=== PATIENT | male | born 1985 | race African-American/Black ===

== ENCOUNTER 2016-02-26 09:50 | Emergency (ER) | payer OTHER ==
[2016-02-26 09:58] VITALS: BP 128/78; PULSE 72; TEMP 98.7; BMI 26.6
[2016-02-26] MEDS ORDERED: CYCLOBENZAPRINE HCL 10 MG TABLET (FP) PO ONE (10:16)
[2016-02-26] MEDS ORDERED: KETOROLAC TROMETHAMINE 30 MG/1 ML VIAL IVPUSH ONE (10:16)
--- NOTE | 2016-02-26 10:27 | PDOC ---
History of Present Illness - General History Source: Patient - History of Present Illness Timing/Duration: reports: constant <Maricel Acuna - Last Filed: 02/26/16 12:43> <Nava Dean - Last Filed: 02/26/16 18:17> - General Chief Complaint: Pain, Acute Stated Complaint: LOWER BACK PAIN, ABD CRAMPS, CONSTIPATION Time Seen by Provider: 02/26/16 10:05 Past History - Past Medical History Anemia: No Asthma: Yes Cancer: No Cardiac Disorders: No CVA: No COPD: No CHF: No Dementia: No Diabetes: No GI Disorders: Yes (ABD. PAIN) Disorders: Yes ("weak bladder") HTN: Yes Hypercholesterolemia: No Liver Disease: No Psychiatric Problems: Yes (anxeity,depression) Seizures: No Thyroid Disease: No Other medical history: kidney problems - Surgical History Abdominal Surgery: No Appendectomy: No Cardiac Surgery: No Cholecystectomy: No Lung Surgery: No Neurologic Surgery: No Orthopedic Surgery: Yes (r shoulder rotator cuff surgery) - Immunization History Immunization Up to Date: Yes - Psycho/Social/Smoking Cessation Hx Anxiety: No Suicidal Ideation: No Smoking Status: No Smoking History: Never smoked Have you smoked in the past 12 months: No Number of Cigarettes Smoked Daily: 5 If you are a former smoker, when did you quit?: Several years ago. Cigars Per Day: 0 Information on smoking cessation initiated: No Hx Alcohol Use: No Drug/Substance Use Hx: No Substance Use Type: None Hx Substance Use Treatment: No <Maricel Acuna - Last Filed: 02/26/16 12:43> <Nava Dean - Last Filed: 02/26/16 18:17> - Past Medical History Allergies/Adverse Reactions: Allergies Allergy/AdvReac Type Severity Reaction Status Date / Time Shellfish Allergy Severe Itching, Verified 02/26/16 09:53 diarrhea, abdominal discomfort, rash Home Medications: Ambulatory Orders Tamsulosin HCl 1 tab PO DAILY 12/24/14 Valacyclovir HCl [Valtrex -] 1,000 mg PO BID #4 tablet 09/15/15 Docusate Sodium [Dulcolax Stool Softener] 100 mg PO DAILY #30 capsule 11/05/15 Omeprazole 20 mg PO DAILY #3 capsule. 11/05/15 Aripiprazole [Abilify] 5 mg PO AM #30 tablet 11/25/15 Azithromycin [Zithromax Tri-Les (3 DAYS) -] 500 mg PO DAILY #3 tablet 12/17/15 Cetirizine HCl [Zyrtec -] 10 mg PO DAILY #30 tablet MDD 1 12/17/15 Cyanocobalamin [Vitamin B12 -] 1 tab PO DAILY #30 tablet 12/17/15 Emtricitab/Rilpivirine/Tenofov [Complera Tablet -] 1 tab PO DAILY #30 tablet 11/21 Montelukast Na [Singulair -] 10 mg PO HS #30 tablet 12/17/15 Venlafaxine HCl ER [Effexor Xr -] 75 mg PO DAILY #30 cap.er.24h 12/17/15 Albuterol 0.083% Nebulizer Imelda [Ventolin 0.083% Nebulizer Soln -] 1 amp NEB PRN #30 amp 01/05/16 Amlodipine Besylate [Norvasc -] 10 mg PO DAILY #30 tablet 01/05/16 Acyclovir [Zovirax -] 400 mg PO DAILY #10 tablet 02/11/16 Hydrocortisone 0.5% Cream [Hytone 0.5% Cream -] 1 applic TP DAILY #1 tube Linaclotide [Linzess] 145 mcg PO DAILY #30 cap 02/11/16 Polyethylene Glycol 3350 [Miralax (For Daily Use) -] 17 gm PO DAILY #1 bottle Review of Systems - Review of Systems Constitutional: No: Chills, Fever Respiratory: No: Cough, Shortness of Breath Cardiac (ROS): No: Chest Pain ABD/GI: Yes: Constipated. No: Diarrhea, Nausea, Rectal Bleeding, Vomiting, Tarry Stools : No: Dysuria, Hematuria Musculoskeletal: Yes: Back Pain <Maricel Acuna - Last Filed: 02/26/16 12:43> *Physical Exam - Vital Signs Last Vital Signs Temp Pulse Resp BP Pulse Ox 98.7 F 72 18 128/78 100 02/26/16 09:53 02/26/16 09:53 02/26/16 09:53 02/26/16 09:53 02/26/16 09:53 - Physical Exam General Appearance: Yes: Appropriately Dressed. No: Apparent Distress HEENT: positive: Normal Voice Neck: positive: Supple Respiratory/Chest: negative: Respiratory Distress Gastrointestinal/Abdominal: positive: Soft. negative: Tender, Distended Musculoskeletal: positive: Vertebral Tenderness (to L mid back). negative: CVA Tenderness Integumentary: positive: Dry, Warm Neurologic: positive: Fully Oriented, Alert, Normal Mood/Affect <RichfieldYesseniaYo - Last Filed: 02/26/16 12:43> - Vital Signs Last Vital Signs Temp Pulse Resp BP Pulse Ox 98.7 F 72 18 128/78 100 02/26/16 09:53 02/26/16 09:53 02/26/16 09:53 02/26/16 09:53 02/26/16 09:53 <Nava Dean - Last Filed: 02/26/16 18:17> ED Treatment Course - LABORATORY CBC & Chemistry Diagram: 02/26/16 11:21 02/26/16 11:21 - RADIOLOGY Radiology Studies Ordered: Category Date Time Status ABDOMEN-KUB FLAT PLATE [RAD] Stat Radiology 02/26/16 10:15 Ordered <ArmandYesseniaYo - Last Filed: 02/26/16 12:43> - LABORATORY CBC & Chemistry Diagram: 02/26/16 11:21 02/26/16 11:21 - ADDITIONAL ORDERS Additional order review: Laboratory Results 02/26/16 02/26/16 11:48 11:21 Sodium 142 Potassium 3.9 Chloride 108 H Carbon Dioxide 26 Anion Gap 8 BUN 16 D Creatinine 1.2 Creat Clearance w eGFR > 60 Random Glucose 99 D Calcium 8.2 L Total Bilirubin 0.4 AST 21 ALT 36 Alkaline Phosphatase 89 Total Protein 6.8 Albumin 3.8 Urine Color Ltyellow Urine Appearance Clear Urine pH 6.0 Ur Specific [place] 1.018 Urine Protein Negative Urine Glucose (UA) Negative Urine Ketones Negative Urine Blood Negative Urine Nitrite Negative Urine Bilirubin Negative Urine Urobilinogen Negative Ur Leukocyte Esterase Negative 02/26/16 11:21 RBC 5.00 MCV 88.0 MCHC 34.1 RDW 13.1 MPV 8.2 Neutrophils % 55.4 Lymphocytes % 32.6 D Monocytes % 9.3 Eosinophils % 1.8 D Basophils % 0.9 - Medications Given in the ED: ED Medications Discontinued Medications Generic Name Dose Route Start Last Admin Trade Name Freq PRN Reason Stop Dose Admin Cyclobenzaprine HCl 5 mg 02/26/16 10:16 02/26/16 11:48 Flexeril - PO 02/26/16 10:17 5 mg ONCE ONE Administration Ketorolac Tromethamine 30 mg 02/26/16 10:16 02/26/16 11:48 Toradol Injection - IVPUSH 02/26/16 10:17 30 mg ONCE ONE Administration <Nava Dean - Last Filed: 02/26/16 18:17> Medical Decision Making - Medical Decision Making 02/26/16 10:41 30-year-old male, history of HIV, on medication, CD4 in the 500s, viral <20, hypertension, GERD, polysubstance abuse, depression, presenting with multiple complaints today. Patient complaining of constipation "for a while now". States last bowel movement was a few days ago and has since had to strain to move his bowels. Now having some abdominal bloating and discomfort. No bright red blood per rectum. States he took an enema at home with no improvement. Patient also complaining of left mid back pain 1 week. Describes as sharp and worse with certain movements. No dysuria, hematuria, nausea, vomiting, fever or chills. See exam Constipation No RFs for SBO -KUB -bowel regimen>reassess Back pain M/l MSK No red flags at this time -labs/ua given HIV status -pain control 02/26/16 12:36 Labs wnl. XR w/ fecal debris, no s/o obstruction. Back pain improved w/ meds. Pt stable throughout ED visit. Will discharge w/ bowel regimen at this time <Maricel Acuna - Last Filed: 02/26/16 12:43> *DC/Admit/Observation/Transfer <Maricel Acuna - Last Filed: 02/26/16 12:43> - Attestations Physician Attestion: I reviewed the case with the mid-level practitioner and agree with the mid- level practitioner's assessment, diagnosis and disposition. <Nava Dean - Last Filed: 02/26/16 18:17> Diagnosis at time of Disposition: Constipation Qualifiers: Constipation type: unspecified constipation type Qualified Code(s): K59.00 - Constipation, unspecified - Discharge Dispostion Disposition: HOME Condition at time of disposition: Stable - Prescriptions Prescriptions: Polyethylene Glycol 3350 [Miralax (For Daily Use) -] 17 gm PO DAILY #1 bottle - Referrals Referrals: Khoa Pandya NP [Primary Care Provider] - - Patient Instructions Printed Discharge Instructions: Constipation Additional Instructions: Please follow up with your PMD
[2016-02-26] MEDS ORDERED: CYCLOBENZAPRINE HCL 10 MG TABLET (FP) ONE (11:40)
[2016-02-26] MEDS ORDERED: KETOROLAC TROMETHAMINE 30 MG/1 ML VIAL ONE (11:40)
[2016-02-26 11:42] LABS: BASOPHIL 0.9 % (0-2.0); EOSINOPHIL 1.8 % (0-4.5); MCHC 34.1 g/dl (32.0-35.9); MEAN PLT VOLUME 8.2 fl (7.5-11.1); NEUTROPHILS 55.4 % (42.8-82.8); PLATELET COUNT 203 K/MM3 (134-434); RDW 13.1 % (11.9-15.9); WHITE BLOOD COUNT 4.2 K/mm3 (4.0-10.0)
[2016-02-26 11:55] LABS: ALBUMIN 3.8 g/dl (3.4-5.0); ANION GAP 8 (8-16); BILIRUBIN,TOTAL 0.4 mg/dL (0.2-1.0); CALCIUM 8.2 mg/dL (8.5-10.1); CO2 26 mmol/L (21-32); CREATININE 1.2 mg/dL (0.7-1.3); GLUCOSE,RANDOM 99 mg/dL (74-106); SGOT/AST 21 U/L (15-37); SGPT/ALT 36 U/L (12-78); TOT PROT 6.8 g/dl (6.4-8.2)
[2016-02-26 11:56] LABS: ALK PHOS 89 U/L (45-117)
[2016-02-26 12:05] LABS: URINE APPEARANCE CLEAR; URINE BILIRUBIN NEGATIVE (NEGATIVE); URINE BLOOD NEGATIVE (NEGATIVE); URINE COLOR LTYELLOW; URINE GLUCOSE (UA) NEGATIVE (NEGATIVE); URINE KETONE NEGATIVE (NEGATIVE); URINE LEUK ESTERASE NEGATIVE (NEGATIVE); URINE NITRITE NEGATIVE (NEGATIVE); URINE PROTEIN NEGATIVE (NEGATIVE); URINE UROBILINOGEN NEGATIVE E.U./dl (0.2-1.0)
== END 2016-02-26 13:22 | disposition home or self-care (01) ==
LOC: JER 09:50
PROC: 3E0333Z Introduction of Anti-inflammatory into Peripheral Vein, Percutaneous Approach (ICD-10-PCS; principal; 2016-02-26)
DX: K59.00 Constipation, unspecified (principal); J45.909 Unspecified asthma, uncomplicated; I10 Essential (primary) hypertension; F41.8 Other specified anxiety disorders; Z72.0 Tobacco use
CPT/HCPCS: 36415; 74000-TC; 80053; 81003; 85025; 96374; 99283-25

== ENCOUNTER 2016-12-20 00:02 | Emergency (ER) | payer OTHER ==
[2016-12-20 00:59] VITALS: BP 153/67; PULSE 84; TEMP 98.7; BMI 26.6
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
== END 2016-12-20 02:33 | disposition home or self-care (01) ==
LOC: JER 00:02
DX: B34.9 Viral infection, unspecified (principal); I10 Essential (primary) hypertension; F41.8 Other specified anxiety disorders
CPT/HCPCS: 87804; 99282-25

== ENCOUNTER 2017-03-18 15:21 | Emergency (ER) | payer SELFPAY ==
[2017-03-18 15:27] VITALS: BP 154/79; PULSE 74; TEMP 98; BMI 25.5
--- NOTE | 2017-03-18 15:31 | PDOC ---
History of Present Illness - General History Source: Patient Exam Limitations: No Limitations - History of Present Illness Initial Comments: 03/18/17 16:01 The patient is a 31 year old male with a significant past medical history of HIV , HTN, asthma and depression who presents to the ED with complaints of generalized malaise for a month. The patient reports one month of shortness of breath, sore throat and a cough productive of white phlegm. He also reports feeling warm but never recorded his temperature. He reports chest tightness that started this morning. Patient states his present symptoms are not similar to his history of asthma. Denies recent sick contacts. Denies nausea, vomiting, or diarrhea. Deneis rhinorrhea. Denies dysuria or change in urinary output. Denies any other symptoms. <Jaquelin Dunbar - Last Filed: 03/18/17 16:01> <Ev Kinney - Last Filed: 03/19/17 00:46> - General Chief Complaint: Foreign Body (FB) Stated Complaint: SOB Time Seen by Provider: 03/18/17 15:31 Past History <Jaquelin Dunbar - Last Filed: 03/18/17 16:01> - Past Medical History Anemia: No Asthma: Yes Cancer: No Cardiac Disorders: No CVA: No COPD: No CHF: No Dementia: No Diabetes: No GI Disorders: Yes (ABD. PAIN) Disorders: Yes ("weak bladder") HTN: Yes Hypercholesterolemia: No Liver Disease: No Psychiatric Problems: Yes (anxeity,depression) Seizures: No Thyroid Disease: No - Surgical History Abdominal Surgery: No Appendectomy: No Cardiac Surgery: No Cholecystectomy: No Lung Surgery: No Neurologic Surgery: No Orthopedic Surgery: Yes (r shoulder rotator cuff surgery) - Immunization History Immunization Up to Date: Yes - Suicide/Smoking/Psychosocial Hx Smoking Status: No Smoking History: Never smoked Have you smoked in the past 12 months: No Number of Cigarettes Smoked Daily: 5 If you are a former smoker, when did you quit?: Several years ago. Cigars Per Day: 0 Hx Alcohol Use: No Drug/Substance Use Hx: No Substance Use Type: None Hx Substance Use Treatment: No <Ev Kinney - Last Filed: 03/19/17 00:46> - Past Medical History Allergies/Adverse Reactions: Allergies Allergy/AdvReac Type Severity Reaction Status Date / Time Shellfish Allergy Severe Itching, Verified 03/18/17 15:27 diarrhea, abdominal discomfort, rash Home Medications: Ambulatory Orders Amlodipine Besylate [Norvasc -] 10 mg PO DAILY #30 tablet 12/02/16 Multivitamin with Minerals [Icaps Plus] 1 each PO DAILY #30 tablet 12/02/16 Chlorhexidine Gluconate [Peridex -] 15 ml MM BID #1 btl 01/26/17 Albuterol 0.083% Nebulizer Imelda [Ventolin 0.083% Nebulizer Soln -] 1 amp NEB QID PRN #1 box MDD 4 01/27/17 Docusate Sodium [Colace] 100 mg PO DAILY PRN #30 capsule MDD 1 01/27/17 Aripiprazole [Abilify -] 5 mg PO DAILY #30 tablet 02/16/17 Trazodone HCl 100 mg PO HS #30 tablet 02/16/17 Venlafaxine HCl ER [Effexor Xr -] 100 mg PO DAILY #30 cap.er.24h 02/16/17 Cetirizine HCl [Zyrtec -] 10 mg PO DAILY #30 tablet 03/02/17 Cyanocobalamin [Vitamin B12 -] 1 tab PO DAILY #30 tablet 03/02/17 Emtricitab/Rilpivirine/Tenofov [Complera -] 1 each PO DAILY #30 tablet 03/02/17 Fluticasone Prop 0.05% Nasal [Flonase -] 1 - 2 spray NS DAILY #1 spray.pump Guaifenesin [Mucinex -] 600 mg PO DAILY #20 tablet.er 03/02/17 Montelukast Na [Singulair -] 10 mg PO HS #30 tablet 03/02/17 Omeprazole 20 mg PO DAILY #30 capsule. 03/02/17 Ranitidine HCl [Zantac] 150 mg PO BID PRN 7 Days #14 tablet 03/18/17 Review of Systems - Review of Systems Able to Perform ROS?: Yes Comments:: 03/18/17 16:01 Constitutional -+ malaise. Pt denies Fever, Chills, weakness, HEENT: + sore throat denies vision changes Respiratory: + shortness of breath, cough Denies hemoptysis Cardiac: + chest tightness denies palpitations, light headedness, leg swelling Abd/GI: denies abd pain, nausea, vomiting, blood per rectum, melena, diarrhea : denies dysuria, frequency, discharge Musculskelatal - denies back pain, joint swelling skin - denies bruising, erythema, rash neurological: denies headache, numbness, focal weakness, tingling, ataxia, weakness hematologic: denies anemia, easy bruising, easy bleeding All Other Systems: Reviewed and Negative <Jaquelin Dunbar - Last Filed: 03/18/17 16:01> *Physical Exam - Vital Signs Last Vital Signs Temp Pulse Resp BP Pulse Ox 98 F 74 18 154/79 98 03/18/17 15:25 03/18/17 15:25 03/18/17 15:25 03/18/17 15:25 03/18/17 15:25 - Physical Exam Comments: 03/18/17 16:01 GENERAL: The patient is awake, alert, and fully oriented, Nontoxic - in no acute distress. HEAD: Normocephalic, atraumatic. EYES: extraocular movements intact, sclera anicteric, conjunctiva clear. ENT: Normal voice, moist mucous membranes. NECK: Normal range of motion, supple without lymphadenopathy, JVD, or masses. LUNGS: Breath sounds equal, clear to auscultation bilaterally. No wheezes, no crackles, no rales. HEART: Regular rate and rhythm, normal S1 and S2 without murmur, rub or gallop. ABDOMEN: Soft, nontender, normoactive bowel sounds. No guarding, no rebound. No masses. EXTREMITIES: Normal range of motion, no edema. No clubbing or cyanosis. No cords , erythema, or tenderness. NEUROLOGICAL: Fully Oriented, Alert, Normal Mood/Affect, Motor Strength 5/5. No facial assymetry, Normal speech SKIN: Warm, Dry, normal turgor, no rashes or lesions noted. <Jaquelin Dunbar - Last Filed: 03/18/17 16:01> - Vital Signs Last Vital Signs Temp Pulse Resp BP Pulse Ox 98 F 74 18 154/79 98 03/18/17 15:25 03/18/17 15:25 03/18/17 15:25 03/18/17 15:25 03/18/17 15:25 <Ev Kinney - Last Filed: 03/19/17 00:46> ED Treatment Course - LABORATORY CBC & Chemistry Diagram: 03/18/17 16:06 03/18/17 16:06 <Ev Kinney - Last Filed: 03/19/17 00:46> Medical Decision Making - Medical Decision Making 03/18/17 19:30 I, Dr. ev Kinney, attest that the scribes documentation that appears above has been prepared under my direction and personally reviewed by me. I confirmed that the note above accurately reflects all work, treatment, procedures, and medical decision-making performed by me. 03/18/17 19:31 Pt presents to ED c/o feeling like something is his throat or stuck in his chest. Pt says something has been stuck in his chest for one month. Pt behavior is odd screaming inapproriately at times then very calm at times.Pt was just at [facility] today with the same complaint. Pt says he cannot eat and has not eaten in a month due to the symptoms. Cbc,cmp and cxr ordered to evaluate pt's complaints. While eaiting on labs pt ate lunch in ED and was sleeping comfortably. Pt's labs noted and reviewed and cxr while not officially read appears nl no acute infiltrate.Pt is HIV positive but says he is compliant with his meds and his CD4 count was normal in December 2016 when medical record reviewed. Pt labs and xray results were reviewed with him and he was told he was being discharged and initially said ok then 5 minutes later said he could not go because he could not breath. Pt was reexamined and was noted to have a room air saturation of 98-100% in no distress with clear bs, nl uvula , no thrush noted on oral exam.Pt explained he would be given out pt f/u for his complaints. He insisted above complaints present for months and he needed additional testing.Pt was give pepcid and discharged on zantac prn in case of reflux , and pt given out pt referral with with gi, ent, and told to f/u with pcp in next 48-72 hrs. Pt still did not want to leave and hospital secutity were called and pt eventually left ED in stable condition. 03/19/17 00:41 <Ev Kinney - Last Filed: 03/19/17 00:46> *DC/Admit/Observation/Transfer - Attestations Scribe Attestion: 03/18/17 16:02 Documentation prepared by Jaquelin Dunbar, acting as medical services assistant for Ev Kinney MD <Jaquelin Dunbar - Last Filed: 03/18/17 16:01> - Discharge Dispostion Admit: No <Ev Kinney - Last Filed: 03/19/17 00:46> Diagnosis at time of Disposition: Laryngitis - Discharge Dispostion Disposition: HOME Condition at time of disposition: Stable - Prescriptions Prescriptions: Ranitidine HCl [Zantac] 150 mg PO BID PRN 7 Days #14 tablet PRN Reason: Dyspepsia - Referrals Referrals: Khoa Pandya NP [Primary Care Provider] - Ferdinand Khan MD [Staff Physician] - Chris Coleman MD [Staff Physician] - - Patient Instructions Additional Instructions: return to ED for trouble breathing, sob, fever or as needed. Take all meds as prescribed f/u with ent, gi and pcp in next 48-72 hrs for reevaluation
[2017-03-18 16:13] LABS: BASO % 0.6 % (0-2.0); EOS % 1.3 % (0-4.5); HEMATOCRIT 45.4 % (35.4-49); HEMOGLOBIN 15.6 GM/dL (11.7-16.9); LYMPH % 28.9 % (8-40); MCH 30.1 pg (25.7-33.7); MCHC 34.4 g/dl (32.0-35.9); MEAN CELL VOLUME 87.5 fl (80-96); MEAN PLT VOLUME 8.2 fl (7.5-11.1); NEUT % 60.2 % (42.8-82.8); PLATELET COUNT 231 K/MM3 (134-434); RBC 5.18 M/mm3 (4.00-5.60); WHITE BLOOD COUNT 4.9 K/mm3 (4.0-10.0)
[2017-03-18 16:42] LABS: ALBUMIN 4.2 g/dl (3.4-5.0); ANION GAP 5 (8-16); BILIRUBIN,TOTAL 0.8 mg/dL (0.2-1.0); BLOOD UREA NITROGEN 11 mg/dL (7-18); CALCIUM 8.1 mg/dL (8.5-10.1); CHLORIDE 109 mmol/L (98-107); CO2 28 mmol/L (21-32); CREATININE 1.2 mg/dL (0.7-1.3); GLUCOSE,RANDOM 81 mg/dL (74-106); SGOT/AST 23 U/L (15-37); SGPT/ALT 32 U/L (12-78); SODIUM 142 mmol/L (136-145)
[2017-03-18 16:43] LABS: ALK PHOS 69 U/L (45-117)
[2017-03-18] MEDS ORDERED: ACETAMINOPHEN 500 MG TABLET (FP) PO ONE (17:46)
[2017-03-18] MEDS ORDERED: FAMOTIDINE IV 20 MG/12 ML VIAL IVPUSH ONE (17:48)
[2017-03-18] MEDS ORDERED: FAMOTIDINE 20 MG/50 ML IVPB 20 MG/50 ML MG IVPB ONE (17:52)
[2017-03-18] MEDS ORDERED: ACETAMINOPHEN 325 MG TABLET (FP) ONE (17:52)
== END 2017-03-18 18:08 | disposition home or self-care (01) ==
LOC: JER 15:21
PROC: 3E033GC Introduction of Other Therapeutic Substance into Peripheral Vein, Percutaneous Approach (ICD-10-PCS; principal; 2017-03-18)
DX: J04.0 Acute laryngitis (principal); I10 Essential (primary) hypertension; J45.909 Unspecified asthma, uncomplicated; F32.9 Major depressive disorder, single episode, unspecified; Z21 Asymptomatic human immunodeficiency virus [HIV] infection status
CPT/HCPCS: 36415; 71046-TC-FY; 80053; 85025; 99283-25

== ENCOUNTER → 2018-10-03 | Outpatient (CLI) | payer OTHER | LOC: YHH 10:32 ==

== ENCOUNTER 2019-01-15 02:26 | Emergency (ER) | payer OTHER ==
[2019-01-15 02:31] VITALS: BP 140/86; PULSE 60; TEMP 98; BMI 26.6
--- NOTE | 2019-01-15 02:42 | PDOC ---
History of Present Illness - General Chief Complaint: Shortness of Breath Stated Complaint: DIFFICULTY BREATHING Time Seen by Provider: 01/15/19 02:42 History Source: Patient Exam Limitations: No Limitations - History of Present Illness Initial Comments: 01/15/19 03:51 33yM w PMHx HIV, HTN, asthma, depression, frequent ED visitor presenting w cough and chest pain. Been having white phlegm cough, rocco anterior chest pain, nasal congestion, headaches, chills, umbilical discomfort for the last 3 years. Vomited twice today. Denies alcohol/smoking/illicit drugs. Went to [facility] today for symptoms, left d/t dissatisfaction w care. Reports recently found to have house filled with mold. Wants to be admitted for pulmonary function test per Dr Rodrigez. Compliant w meds, last absolute CD4 >500 on 11/02/18. Denies fever, urinary/bowel mvmt changes. Past History - Past Medical History Allergies/Adverse Reactions: Allergies Allergy/AdvReac Type Severity Reaction Status Date / Time Shellfish Allergy Severe Itching, Verified 01/15/19 02:29 diarrhea, abdominal discomfort, rash Home Medications: Ambulatory Orders Elviteg/Cob/Emtri/Tenof Alafen [Genvoya Tablet] 1 tab PO DAILY #30 tablet Omeprazole 20 mg PO DAILY #30 capsule. 02/14/18 Valacyclovir HCl [Valtrex -] 2 tab PO BID #4 tablet 02/14/18 Multivitamin,Ther and Minerals [Vitamin and Minerals] 1 each PO DAILY #30 tablet 12/05/18 Albuterol 0.083% Nebulizer Imelda [Ventolin 0.083% Nebulizer Soln -] 1 amp NEB QID PRN #1 box MDD 4 01/10/19 Amlodipine Besylate [Norvasc -] 10 mg PO DAILY #30 tablet 01/10/19 Elviteg/Cob/Emtri/Tenof Alafen [Genvoya (Non-Formulary)] 1 each PO DAILY #30 tablet 01/10/19 Fluticasone Prop 0.05% Nasal [Flonase -] 1 - 2 spray NS DAILY #1 spray.pump 06/24 Perphenazine [Trilafon -] 4 mg PO HS #30 tablet 01/10/19 Venlafaxine HCl ER [Effexor Xr -] 150 mg PO DAILY #30 cap.er.24h 01/10/19 traZODone HCL [Trazodone HCl] 100 mg PO HS #30 tablet 01/10/19 Anemia: No Asthma: Yes Cancer: No Cardiac Disorders: No CVA: No COPD: No CHF: No Dementia: No Diabetes: No GI Disorders: Yes Disorders: Yes ("weak bladder") HTN: Yes Hypercholesterolemia: Yes Liver Disease: No Psychiatric Problems: Yes (anxeity,depression) Seizures: No Thyroid Disease: No - Surgical History Abdominal Surgery: No Appendectomy: No Cardiac Surgery: No Cholecystectomy: No Lung Surgery: No Neurologic Surgery: No Orthopedic Surgery: Yes (r shoulder rotator cuff surgery) - Immunization History Immunization Up to Date: Yes - Psycho Social/Smoking Cessation Hx Smoking Status: No Smoking History: Never smoked Have you smoked in the past 12 months: No Number of Cigarettes Smoked Daily: 5 If you are a former smoker, when did you quit?: Several years ago. Cigars Per Day: 0 Hx Alcohol Use: Yes Drug/Substance Use Hx: Yes (pcp) Substance Use Type: Marijuana Hx Substance Use Treatment: No Review of Systems - Review of Systems Constitutional: Yes: Chills. No: Fever HEENTM: No: Recent change in vision, Throat Pain Respiratory: Yes: Cough. No: Shortness of Breath, Wheezing Cardiac (ROS): Yes: Chest Pain. No: Palpitations, Syncope ABD/GI: Yes: Nausea, Vomiting. No: Abdominal Distended, Constipated, Diarrhea : No: Burning, Dysuria Musculoskeletal: No: Back Pain, Joint Pain Integumentary: No: Bruising, Dryness, Erythema Neurological: Yes: Headache. No: Seizure, Tingling Psychiatric: No: Anxiety, Stressors Endocrine: No: Excessive Sweating, Intolerance to Cold, Intolerance to Heat Hematologic/Lymphatic: No: Anemia, Blood Clots *Physical Exam - Vital Signs Last Vital Signs Temp Pulse Resp BP Pulse Ox 98.0 F 60 18 140/86 98 01/15/19 02:29 01/15/19 02:29 01/15/19 02:29 01/15/19 02:29 01/15/19 02:29 - Physical Exam General Appearance: Yes: Nourished, Appropriately Dressed. No: Apparent Distress HEENT: positive: EOMI, ADOLFO, Normal Voice, Hearing Grossly Normal. negative: Scleral Icterus (R), Scleral Icterus (L), Nasal Congestion Respiratory/Chest: positive: Chest Tender (rocco anterior chest), Lungs Clear, Normal Breath Sounds. negative: Respiratory Distress, Crackles, Rales, Rhonchi , Stridor, Wheezing Cardiovascular: positive: Regular Rhythm, Regular Rate, S1, S2. negative: Edema , Murmur Gastrointestinal/Abdominal: positive: Normal Bowel Sounds, Flat, Soft. negative : Tender, Organomegaly, Protuberent, Distended, Guarding, Rebound, Tenderness, Hernia, Mass Musculoskeletal: negative: CVA Tenderness (R), CVA Tenderness (L) Extremity: positive: Normal Capillary Refill Integumentary: positive: Normal Color. 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 negative: Numbness, Sensory Deficit, Confused, Disoriented ED Treatment Course - LABORATORY CBC & Chemistry Diagram: 01/15/19 04:00 01/15/19 04:00 Medical Decision Making - Medical Decision Making 01/15/19 03:57 CBC CMP trop EKG shows sinus bradycardia, HR 54, QTc 386, ST elevations V2-3 unchanged from previous EKG toradol CBC, CMP normal, trop neg, Cr 1.5 (elevated last 6mo) --- 33yM w PMHx HIV, HTN, asthma, depression, frequent ED visitor presenting w 3yr chronic cough, chest pain, nasal congestion d/t URI. Low concern for ACS (NSR EKG, neg trop) vs PE ([facility]C out). Given PO fluids, tylenol and toradol for pain. Told pt he will not be admitted for PFT since it is not urgent. DC home w PCP/ pulm f/u Discharge - Discharge Information Problems reviewed: Yes Clinical Impression/Diagnosis: Viral URI with cough Condition: Good Disposition: HOME - Admission No - Follow up/Referral - Patient Discharge Instructions Additional Instructions: You were seen for cough and chest pain. Your labs and imaging did not show anything concerning. You were given pain medication and fluids. Follow up with your primary care doctor and lung doctor regarding your symptoms. Come back to the ED if you cannot breathing, unable to keep fluids down, or pass out. - Post Discharge Activity
--- NOTE | 2019-01-15 02:51 | PDOC ---
Attending Attestation - Resident Resident Name: Jose Downey - ED Attending Attestation I have performed the following: I have examined & evaluated the patient, The case was reviewed & discussed with the resident, I agree w/resident's findings & plan - HPI HPI: 01/15/19 04:48 agree with resident hpi - Physicial Exam PE: 01/15/19 04:48 agree with resident exam - Medical Decision Making 01/15/19 04:33-year-old male, HIV positive by history compliant with medications complaining of 2 years of shortness of breath now with reproducible chest pain EKG shows an early repolarization pattern, similar to previous Chest x-ray shows no acute pulmonary disease Patient given NSAIDs, 500 cc of normal saline given as well due to mild elevation of creatinine which is also chronic Plan for discharge home with primary care follow-up
[2019-01-15] MEDS ORDERED: ACETAMINOPHEN 500 MG TABLET (FP) PO ONE (03:34)
[2019-01-15] MEDS ORDERED: KETOROLAC TROMETHAMINE 30 MG/1 ML VIAL IM ONE (04:07)
[2019-01-15] MEDS ORDERED: KETOROLAC TROMETHAMINE 30 MG/1 ML VIAL ONE (04:24)
[2019-01-15 04:29] LABS: EOS % 2.3 % (0-4.5); HEMATOCRIT 45.4 % (35.4-49); HEMOGLOBIN 15.2 GM/dL (11.7-16.9); LYMPH % 37.6 % (8-40); MCH 29.3 pg (25.7-33.7); MCHC 33.5 g/dl (32.0-35.9); MEAN CELL VOLUME 87.5 fl (80-96); MEAN PLT VOLUME 8.7 fl (7.5-11.1); MONO % 7.8 % (3.8-10.2); NEUT % 51.3 % (42.8-82.8); PLATELET COUNT 247 K/MM3 (134-434); RBC 5.19 M/mm3 (4.00-5.60); RDW 13.3 % (11.9-15.9)
[2019-01-15 04:46] LABS: ALBUMIN 4.2 g/dl (3.4-5.0); BILIRUBIN,TOTAL 0.6 mg/dL (0.2-1); BLOOD UREA NITROGEN 14.1 mg/dL (7-18); CALCIUM 8.9 mg/dL (8.5-10.1); CREATININE 1.5 mg/dL (0.55-1.3); POTASSIUM 3.9 mmol/L (3.5-5.1); TOT PROT 7.2 g/dl (6.4-8.2)
--- NOTE | 2019-01-15 09:06 | EKG ---
Test Reason : Blood Pressure : / mmHG Vent. Rate : 054 BPM Atrial Rate : 054 BPM P-R Int : 170 ms QRS Dur : 100 ms QT Int : 408 ms P-R-T Axes : 062 031 044 degrees QTc Int : [address] ELEVATION, CONSIDER EARLY REPOLARIZATION, PERICARDITIS, OR INJURY ABNORMAL ECG WHEN COMPARED WITH ECG OF 14-FEB-2018 11:56, NO SIGNIFICANT CHANGE WAS FOUND Confirmed by Bar Shah MD ([id number]) on 01/15/2019 9:05:58 AM Referred By: Confirmed By:Bar Shah MD
== END 2019-01-15 05:17 | disposition home or self-care (01) ==
LOC: JER 02:26
DX: J06.9 Acute upper respiratory infection, unspecified (principal); R05 Cough; Z91.013 Allergy to seafood
CPT/HCPCS: 36415; 71046-TC-FY; 80053; 84484; 85025; 93005; 93010; 99284-25

== ENCOUNTER 2019-02-17 18:07 | Emergency (ER) | payer OTHER ==
[2019-02-17 18:30] VITALS: BP 118/78; PULSE 77; BMI 29.8
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
== END 2019-02-17 21:42 | disposition home or self-care (01) ==
LOC: JERFT 18:07
PROC: 0HQ0XZZ Repair Scalp Skin, External Approach (ICD-10-PCS; principal; 2019-02-17)
DX: S01.01XA Laceration without foreign body of scalp, initial encounter (principal); X99.8XXA Assault by other sharp object, initial encounter; Y93.89 Activity, other specified; Y92.414 Local residential or business street as the place of occurrence of the external cause; Y99.8 Other external cause status; Y07.6 Multiple perpetrators of maltreatment and neglect; I10 Essential (primary) hypertension; E78.00 Pure hypercholesterolemia, unspecified; J45.909 Unspecified asthma, uncomplicated; F41.8 Other specified anxiety disorders; F32.9 Major depressive disorder, single episode, unspecified; Z21 Asymptomatic human immunodeficiency virus [HIV] infection status; F17.210 Nicotine dependence, cigarettes, uncomplicated
CPT/HCPCS: 12001-25; 70450-TC; 99282-25

== ENCOUNTER 2019-04-17 19:03 | Emergency (ER) | payer OTHER ==
[2019-04-17 19:32] VITALS: TEMP 98.2; BMI 29.8
--- NOTE | 2019-04-17 20:30 | PDOC ---
History of Present Illness - General Chief Complaint: Constipation Stated Complaint: CONSTIPATION Time Seen by Provider: 04/17/19 20:27 History Source: Patient, Old Records - History of Present Illness Initial Comments: 04/17/19 20:29 34y M with PMH of HIV, HTN, Asthma, Mood disorders presenting to ER for constipation. Pt states that he has been constipated for a few weeks but he had loose BMs today. He says that he still feels backed up and has pain in his back and anal area. He has a history of hemorrhoids and says he has rectal pain due to straining and notices drops of blood in the toilet, around the stool and on the toilet paper. He says he has been taking stool softeners without relief and says that MiraLax does not help. Denies fever, hematuria, new urinary symptoms, n/v, rash, noncompliance with medications, abdominal surgeries. Most recent CD4 helper count 714 and most recent viral load <20 (11/02/2018). BM before today was around 2 days ago and pt describes it as "hard suman". PMD: PMH: see hpi PSH: shoulder surgery Meds: see med rec Allergies: nkda Social: marijuana use, occasional alcohol use. Denies IV drug use Past History - Past Medical History Allergies/Adverse Reactions: Allergies Allergy/AdvReac Type Severity Reaction Status Date / Time Shellfish Allergy Severe Itching, Verified 04/17/19 19:29 diarrhea, abdominal discomfort, rash Home Medications: Ambulatory Orders Elviteg/Cob/Emtri/Tenof Alafen [Genvoya Tablet] 1 tab PO DAILY #30 tablet 02/14/18 Omeprazole 20 mg PO DAILY #30 capsule. 02/14/18 Valacyclovir HCl [Valtrex -] 2 tab PO BID #4 tablet 02/14/18 Multivitamin,Ther and Minerals [Vitamin and Minerals] 1 each PO DAILY #30 tablet 12/05/18 Albuterol 0.083% Nebulizer Imelda [Ventolin 0.083% Nebulizer Soln -] 1 amp NEB QID PRN #1 box MDD 4 01/10/19 Perphenazine [Trilafon -] 4 mg PO HS #30 tablet 03/20/19 Venlafaxine HCl ER [Effexor Xr -] 150 mg PO DAILY #30 cap.er.24h 03/20/19 traZODone HCL [Trazodone HCl] 100 mg PO HS #30 tablet 03/20/19 Amlodipine Besylate [Norvasc -] 10 mg PO DAILY #30 tablet 03/21/19 Elviteg/Cob/Emtri/Tenof Alafen [Genvoya (Non-Formulary)] 1 each PO DAILY #30 tablet 03/21/19 Fluticasone Prop 0.05% Nasal [Flonase -] 1 - 2 spray NS DAILY #1 spray.pump 03/21/19 Montelukast Na [Singulair -] 10 mg PO HS #30 tablet 03/21/19 Nebulizer and Compressor [Comp-Air Nebulizer System] 1 each MC DAILY #1 each 03/21/19 Polyethylene Glycol 3350 [Miralax (For Daily Use) -] 17 gm PO DAILY 30 Days #1 bottle 03/21/19 Sennosides/Docusate Sodium [Senokot-S Tablet] 1 each PO DAILY #60 tablet 03/21/19 Hydrocortisone [Preparation H] 26 gm TP DAILY #1 tube 04/18/19 Polyethylene Glycol 3350 [Miralax (For Daily Use) -] 17 gm PO DAILY #1 bottle 04/18/19 Anemia: No Asthma: Yes Cancer: No Cardiac Disorders: No CVA: No COPD: No CHF: No Dementia: No Diabetes: No GI Disorders: Yes Disorders: Yes ("weak bladder") HTN: Yes Hypercholesterolemia: Yes Liver Disease: No Psychiatric Problems: Yes (anxeity,depression) Seizures: No Thyroid Disease: No - Surgical History Abdominal Surgery: No Appendectomy: No Cardiac Surgery: No Cholecystectomy: No Lung Surgery: No Neurologic Surgery: No Orthopedic Surgery: Yes (r shoulder rotator cuff surgery) - Immunization History Immunization Up to Date: Yes - Psycho Social/Smoking Cessation Hx Smoking Status: No Smoking History: Never smoked Have you smoked in the past 12 months: No Number of Cigarettes Smoked Daily: 5 If you are a former smoker, when did you quit?: Several years ago. Cigars Per Day: 0 Information on smoking cessation initiated: No Hx Alcohol Use: No Drug/Substance Use Hx: No Substance Use Type: Marijuana Hx Substance Use Treatment: No Review of Systems - Review of Systems Constitutional: No: Chills, Fever HEENTM: No: Symptoms Reported Respiratory: No: Symptoms reported Cardiac (ROS): No: Symptoms Reported ABD/GI: Yes: See HPI : No: Symptoms Reported Musculoskeletal: Yes: See HPI Integumentary: No: Symptoms Reported Neurological: No: Symptoms reported *Physical Exam - Vital Signs Last Vital Signs Temp Pulse Resp BP Pulse Ox 98.2 F 71 17 143/78 99 04/17/19 19:29 04/17/19 19:29 04/17/19 19:29 04/17/19 19:29 04/17/19 19:29 - Physical Exam General Appearance: Yes: Nourished, Appropriately Dressed, Mild Distress HEENT: positive: EOMI Neck: positive: Trachea midline, Supple Respiratory/Chest: positive: Lungs Clear, Normal Breath Sounds. negative: Crackles, Rales, Rhonchi, Stridor, Wheezing Cardiovascular: positive: Regular Rhythm, Regular Rate, S1, S2. negative: Edema, JVD, Murmur Gastrointestinal/Abdominal: positive: Normal Bowel Sounds, Soft, Tenderness (LLQ). negative: Guarding, Rebound Rectal Exam: positive: other (skin tag at 6oclock position. tenderness at 9oclock position. no external hemorrhoids. ). negative: decreased tone Musculoskeletal: negative: CVA Tenderness Extremity: positive: Normal Capillary Refill Integumentary: positive: Normal Color, Dry, Warm. 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 ttp in llq vitals wnl; afebrile, normotensive ddx includes diverticulitis, diverticulosis, abscess, fissure, obstruction will obtain labs inc. lipase, lact. ivf, ofirmev CTAP with po contrast. 04/17/19 22:31 labs wnl. no leukocytosis, leukopenia, electrolytes, lipase, lact normal. ua negative for infection. 04/17/19 22:41 04/17/19 23:[address]: no evidence of diverticulitis or acute abdominal pathology. pt cannot get morphine as this will worsen the constipation. will give enema. 04/18/19 00:49 pt having bowel movements. still has pain. will give toradol. advised pt to take Miralax daily until he has normal bowel movements. preparation H prescribed advised pt to do Sitz baths. Dc home. Discharge - Discharge Information Problems reviewed: Yes Clinical Impression/Diagnosis: Constipation Qualifiers: Constipation type: unspecified constipation type Qualified Code(s): K59.00 - Co nstipation, unspecified Abdominal pain Qualifiers: Abdominal location: left lower quadrant Qualified Code(s): R10.32 - Left lower quadrant pain Condition: Good Disposition: HOME - Admission No - Additional Discharge Information Prescriptions: Polyethylene Glycol 3350 [Miralax (For Daily Use) -] 17 gm PO DAILY #1 bottle Hydrocortisone [Preparation H] 26 gm TP DAILY #1 tube - Follow up/Referral Referrals: Kevon Epperson NP [Primary Care Provider] - Iván Kelly MD [Staff Physician] - Dalton Urbina DO [Staff Physician] - Raymond Otero MD [Staff Physician] - Calli Al DO [Staff Physician] - - Patient Discharge Instructions Patient Printed Discharge Instructions: Hemorrhoids (Alternative Therapy), DI for Constipation Additional Instructions: You were seen in the ER for constipation. The blood work and CT scan do not show any abnormalities. I recommend that you follow up with your doctor as well as a GI doctor (information provided below) in regards to this ED visit. A prescription for Preparation H as well as MiraLax was sent to your pharmacy. Use as directed. Take MiraLax daily until you have normal bowel movements. You can take Tylenol or ibuprofen for the pain as needed. Come back to the ED if you have worsening symptoms, you pass out, develop fever. Thank you - Post Discharge Activity
[2019-04-17] MEDS ORDERED: LACTATED RINGERS SOLUTION 1000 ML INFUS.BAG IV ONE (20:48)
[2019-04-17] MEDS ORDERED: ACETAMINOPHEN 1000 MG/100 ML VIAL (NON FORMULARY) IVPB ONE (20:48)
[2019-04-17] MEDS ORDERED: ACETAMINOPHEN INJECTION 100 ML IVPB ONE (21:12)
[2019-04-17] MEDS ORDERED: SODIUM CHLORIDE 1,000 ML IV STA (21:12)
--- NOTE | 2019-04-17 21:21 | PDOC ---
Documentation entered by Venita Beyer SCRIBE, acting as scribe for Scarlett Calvo DO. Scarlett Calvo DO: This documentation has been prepared by the Kayleen meng Brenda, SCRIBE, under my direction and personally reviewed by me in its entirety. I confirm that the documentation accurately reflects all work, treatment, procedures, and medical decision making performed by me. Attending Attestation - Resident Resident Name: AdrienneAissatou - ED Attending Attestation I have performed the following: I have examined & evaluated the patient, The case was reviewed & discussed with the resident, I agree w/resident's findings & plan, Exceptions are as noted - HPI HPI: The patient is a 34 year old male with a significant PMH of HIV (recent CD4 count = 714), HTN, Asthma and mood disorders who presents to the ED for evaluation of a few weeks of constipation.Patient reports that after a being constipated for a few weeks, he had loose bowel movements today. Patient endorses pain in back and anus, which he associates with feeling not full empty. Patient reports usual rectal pain due to straining, along with blood during bowel movements. Patient also notes that he has been taking stool softners, to no avail. The patient denies chest pain, shortness of breath, headache and dizziness. Denies fever, chills, nausea, vomiting. Denies dysuria, frequency, urgency and hematuria. Allergies: NKA Social history: No reported hx of tobacco use, alcohol use or illicit drug use. - Physicial Exam PE: 04/17/19 21:00 GENERAL: Awake, alert, and fully oriented, in no acute distress HEAD: No signs of trauma EYES: PERRLA, EOMI, sclera anicteric, conjunctiva clear ENT: Auricles normal inspection, hearing grossly normal, nares patent, oropharynx clear without exudates. Moist mucosa NECK: Normal ROM, supple, no lymphadenopathy, JVD, or masses LUNGS: Breath sounds equal, clear to auscultation bilaterally. No wheezes, and no crackles HEART: Regular rate and rhythm, normal S1 and S2, no murmurs, rubs or gallops ABDOMEN: (+) Left lower quadrant tenderness to palpation. Soft, normoactive bowel sounds. No guarding, no rebound. No masses EXTREMITIES: Normal range of motion, no edema. No clubbing or cyanosis. No cords, erythema, or tenderness NEUROLOGICAL: Cranial nerves II through XII grossly intact. Normal speech, normal gait SKIN: Warm, Dry, normal turgor, no rashes or lesions noted. - Medical Decision Making 04/17/19 21:14 I, Dr. Scarlett Calvo, DO, attest that this document has been prepared under my direction and personally reviewed by me in its entirety. I further attest, that it accurately reflects all work, treatment, procedures and medical decision-making performed by me. a/p: 34yo male with an episode of diarrhea today but has felt constipated and rectal pain -pt also with LLQ pain -no prior hx of diverticular disease, but LLQ and change in bowel habit -pt is hiv +, but undetectable viral load -will send labs, ct abd/pelvis -will monitor and reassess 04/17/19 21:56 no elevated wbc no uti lipase neg pending chem 04/17/19 23:56 no acute findings on ct imaging however, stool in the rectum, will give enema and monitor 04/18/19 00:58 pt had a bm and is feeling better stable for dc to home with outpt follow up
[2019-04-17 21:28] LABS: BASO % 1.1 % (0-2.0); EOS % 1.1 % (0-4.5); HEMATOCRIT 43.8 % (35.4-49); HEMOGLOBIN 14.8 GM/dL (11.7-16.9); LYMPH % 30.4 % (8-40); MCH 28.7 pg (25.7-33.7); MCHC 33.7 g/dl (32.0-35.9); MEAN CELL VOLUME 85.1 fl (80-96); MEAN PLT VOLUME 8.1 fl (7.5-11.1); MONO % 10.2 % (3.8-10.2); NEUT % 57.2 % (42.8-82.8); PLATELET COUNT 275 K/MM3 (134-434); RBC 5.15 M/mm3 (4.00-5.60); RDW 14.8 % (11.9-15.9); WHITE BLOOD COUNT 6.6 K/mm3 (4.0-10.0)
[2019-04-17 21:34] LABS: PH,URINE 6.5 (5.0-8.0); URINE APPEARANCE CLEAR; URINE BILIRUBIN NEGATIVE (NEGATIVE); URINE COLOR YELLOW; URINE GLUCOSE (UA) NEGATIVE (NEGATIVE); URINE KETONE NEGATIVE (NEGATIVE); URINE LEUK ESTERASE NEGATIVE (NEGATIVE); URINE NITRITE NEGATIVE (NEGATIVE); URINE PROTEIN NEGATIVE (NEGATIVE); URINE UROBILINOGEN 0.2 mg/dL (0.2-1.0)
[2019-04-17 21:57] LABS: ALBUMIN 3.8 g/dl (3.4-5.0); BILIRUBIN,TOTAL 0.4 mg/dL (0.2-1); BLOOD UREA NITROGEN 12.2 mg/dL (7-18); CALCIUM 8.2 mg/dL (8.5-10.1); CREATININE 1.1 mg/dL (0.55-1.3); TOT PROT 8.1 g/dl (6.4-8.2)
[2019-04-17] MEDS ORDERED: SODIUM PHOSPHATE/NA BIPHOS 133 ML ENEMA PR ONE (23:37)
[2019-04-18 00:43] VITALS: BP 139/78; PULSE 50
[2019-04-18] MEDS ORDERED: KETOROLAC TROMETHAMINE 15 MG/ML VIAL IVPUSH ONE (00:47)
[2019-04-18] MEDS ORDERED: KETOROLAC TROMETHAMINE 15 MG/ML VIAL ONE (01:09)
== END 2019-04-18 01:20 | disposition home or self-care (01) ==
LOC: JER 19:03
PROC: 3E0337Z Introduction of Electrolytic and Water Balance Substance into Peripheral Vein, Percutaneous Approach (ICD-10-PCS; principal; 2019-04-17)
DX: K59.00 Constipation, unspecified (principal); R10.32 Left lower quadrant pain; Z91.013 Allergy to seafood; F41.8 Other specified anxiety disorders; J45.909 Unspecified asthma, uncomplicated; Z21 Asymptomatic human immunodeficiency virus [HIV] infection status; I10 Essential (primary) hypertension; N39.9 Disorder of urinary system, unspecified; K92.9 Disease of digestive system, unspecified
CPT/HCPCS: 36415; 74176-TC; 80053; 81003; 83605; 83690; 85025; 87086; 99285-25; J0131; J7030

== ENCOUNTER 2021-12-03 16:22 | Emergency (ER) | payer OTHER ==
[2021-12-03 16:28] VITALS: BP 133/73; PULSE 76; RESP 18; TEMP 97; BMI 26.6
[2021-12-03] MEDS ORDERED: ONDANSETRON *ODT* 4 MG TABLET SL ONE (17:54)
[2021-12-03] MEDS ORDERED: IBUPROFEN 600 MG TABLET (FP) PO ONE ×2 (17:54→18:04)
[2021-12-03] MEDS ORDERED: ONDANSETRON *ODT* 4 MG TABLET ONE (18:04)
== END 2021-12-03 20:03 | disposition home or self-care (01) ==
LOC: JER 16:22
DX: J06.9 Acute upper respiratory infection, unspecified (principal)
CPT/HCPCS: 71046-TC-FY; 99284-25; Q0162